=== PATIENT | female | born 1990 | race Caucasian/White ===

== ENCOUNTER 2019-02-18 02:19 | Emergency (ER) | payer MEDICAID ==
[~2019-02-18] VITALS: Ht 162.6 cm; Wt 134.2 kg
[~2019-02-18 02:19] MED LIST: FAMO-96 PO; IBUP-1542 PO; PREN-39 PO
[2019-02-18 02:38] VITALS: Ht 162.6 cm; Wt 134.2 kg
[2019-02-18 05:37] VITALS: BP 132/74; PULSE 78; RESP 20
== END 2019-02-18 06:28 | disposition home or self-care (01) ==
LOC: FTE 02:19
DX: R07.2 Precordial pain (principal); E11.9 Type 2 diabetes mellitus without complications
CPT/HCPCS: 93005; Z7502